=== PATIENT | male | born 1965 | race Caucasian/White ===

== ENCOUNTER 2020-09-20 19:43 | Inpatient (IN) | payer OTHER, SELFPAY ==
[2020-09-20 19:44] VITALS: BP 120/84; PULSE 98; RESP 18; TEMP 37.7; O2SAT 92; BMI 37.4
--- NOTE | 2020-09-20 19:49 | W.ED.ABDPA2 ---
HPI - Abdominal Pain General: Chief Complaint: Abdominal Pain Stated Complaint: SURGERY CONSULT Time Seen by Provider: 09/20/20 19:44 Source: patient and EMS Mode of arrival: EMS Limitations: no limitations History of Present Illness: HPI narrative: 54-year-old male that is here from [facility] for cholecystitis. CT scan showed possible cholecystitis. He states he has had abdominal pain along with fever and a cough since Monday. He denies any vomiting or diarrhea. He denies any worsening or improving factors. States temp at home today was 101. He is not requiring any oxygen Associated Symptoms: Reports fever(s); Denies dysuria Review of Systems Const: Reports: fever(s) and body aches Eyes: Denies: blurry vision or eye discomfort ENMT: Denies: throat pain or dental pain Card: Denies: chest pain Resp: Reports: non-productive cough GI: Reports: abdominal pain : Denies: dysuria Musc: Denies: neck pain or back pain Skin/Breast: Denies: rash Neuro: Denies: headache(s) Psych: Denies: depression Tim/Lymph: Denies: easy bruising All/Imm: Denies: urticaria PFSH ED PFSH: Medical History (Updated 09/20/20 @ 20:54 by Delvis Peters MD) Diabetes Hypertension Surgical History (Updated 09/20/20 @ 20:54 by Delvis Peters MD) No pertinent past surgical history Family History (Updated 09/20/20 @ 20:54 by Delvis Peters MD) Other No pertinent family history Social History Smoking and tobacco status: never smoked Alcohol intake: never Substance/Drug Use: never Housing: House Physical Exam Const: COMMON NORMALS: no acute distress, patient oriented x3 and healthy appearing HENMT: COMMON NORMALS: normocephalic and atraumatic HEAD & SCALP: normocephalic and atraumatic Eye: COMMON NORMALS: Equal, round and reactive pupils present and EOMs intact bilaterally PUPIL: Yes Equal, round and reactive pupils present Neck/C-Spine: COMMON NORMALS: full ROM and supple Chest: COMMONS NORMALS: normal inspection of the chest and normal palpation of entire chest wall Resp: COMMON NORMALS: normal respiratory effort, No retractions, No use of accessory muscles and clear to auscultation bilaterally AUSCULTATION: clear to auscultation bilaterally Cardio: COMMON NORMALS: regular rate, regular rhythm and No murmurs present (Cardio) RATE: regular rate RHYTHM: regular rhythm GI: COMMON NORMALS: Normal to inspection, nondistended, normoactive bowel sounds present, Soft to palpation and no masses PALPATION: Yes Soft to palpation and Yes Tenderness to palpation present (GI) Details: RUQ Extremity: COMMON NORMALS: normal to inspection and full ROM Neuro: COMMON NORMALS: patient oriented x3, moves all extremities and no focal motor deficits Psych: COMMON NORMALS: mental status grossly normal, Normal thought process present and cooperative THOUGHT PROCESS: Normal thought process present Skin: COMMON NORMALS: no rashes or lesions noted and no wounds GENERAL SKIN EXAM: no rashes or lesions noted Course Vital Signs: Vital signs: Vital Signs Temperature 99.9 F H 09/20/20 19:44 Pulse Rate 98 09/20/20 19:44 Respiratory Rate 18 09/20/20 19:44 Blood Pressure 120/84 09/20/20 19:44 Pulse Oximetry 92 09/20/20 19:44 MDM - Abdominal Pain MDM Narrative: Medical decision making narrative: Arie presents here with abdominal pain with cholecystitis. Patient also tested positive Covid. I spoke to Dr. Rendon and will admit for IV antibiotics. I spoke to hospitalist as well for his Covid. Patient is not requiring any oxygen here. Lab Data: Labs: Lab Results 09/20/20 Range/Units 19:58 SARS-CoV-2 Ag (Rap id) Positive H (Negative) Discharge Plan Discharge Patient Disposition: Admitted As Inpatient Clinical Impression: Cholecystitis, COVID-19 Condition: Stable Coding Level of Care Code ED Alignment Technician for Chg Fwd Exam Comprehensive
[2020-09-20 20:37] LABS: SARS Covid-2 Antigen Positive (Negative)
--- NOTE | 2020-09-20 20:52 | P.HP_ITS ---
Providers/Chief Complaint Chief Complaint: SURGERY CONSULT History of Present Illness Arie Richardson is a 54 year old male who does not have significant past medical history other than diabetes and hypertension presented today from [place] [facility] with chief complaint of myalgias, nausea and vomiting. Patient stating that his symptoms started on Monday with extreme myalgias, followed by nausea and couple of episode of emesis in total he had 3-4 episodes of bilious emesis, he was also noticing right upper quadrant pain, moderate intensity associated with loose stools. Temperature at home 101.3. Dr. Rendon is consulted and updated for acute cholecystitis that was diagnosed at [place], at the time of my evaluation patient seemed comfortable, he tested positive for COVID-19, was saturating 90 to 91% on room air, temperature 99.9. He meets sepsis criteria. Review of Systems Const: Reports: fever(s), chills, body aches and fatigue Eyes: Denies: change in vision ENMT: Denies: throat pain Card: Denies: chest pain Resp: Reports: dyspnea and non-productive cough GI: Reports: abdominal pain, nausea, vomiting and diarrhea : Denies: flank pain Musc: Denies: neck pain Skin/Breast: Denies: rash Neuro: Reports: headache(s) Psych: Denies: anxiety Endo: Denies: polyuria Itm/Lymph: Denies: easy bruising All/Imm: Denies: urticaria Medications/Allergies Allergies Allergy/AdvReac Type Severity Reaction Status Date / Time bee venom protein (honey bee) Allergy Unknown Verified 09/20/20 19:44 PFSH Acute PFSH: Medical History (Updated 09/20/20 @ 21:25 by Delvis Peters MD) Diabetes Hypertension Surgical History (Updated 09/20/20 @ 21:23 by Delvis Peters MD) H/O hand surgery Copperhead bite H/O knee surgery Previous back surgery Family History Other No pertinent family history Social History Smoking and tobacco status: never smoked Alcohol intake: never Substance/Drug Use: never Housing: House Vitals/I&O/Wt Last Vital Signs Temp 99.9 F H 09/20/20 19:44 Pulse 98 09/20/20 19:44 Resp 18 09/20/20 19:44 BP 120/84 09/20/20 19:44 Pulse Ox 92 09/20/20 19:44 Weight last 48 hrs Weight 111.584 kg Physical Exam Narrative: EXAM NARRATIVE: Morbidly obese male in semi-Sagastume position comfortable pleasant and cooperative during my evaluation Saturating 90 to 91% on room air no acute respiratory distress No use of respiratory sensory muscles No active chest pain Mild right upper quadrant abdominal pain elicited on deep palpation, abdomen soft, distended, visceral obesity, no signs of diffuse peritonitis, no guarding or rigidity Lower extremity no edema gangrene ulcer Appropriate mood and affect EOMI, PERRLA Awake alert oriented x3 GCS 15 No neurological deficit noted A&P Assessment and plan (1) Cholecystitis: Status: Acute (2) COVID-19: Status: Acute (3) Sepsis: Status: Acute Additional A&P Information Sepsis secondary to acute cholecystitis Criteria met with fever, heart rate above 90, source gallbladder inflammation Start on Zosyn, Dilaudid for analgesia, D5 half-normal saline fluid maintenance rate Dr. Rendon consulted and updated COVID-19 pneumonia Patient has been experiencing myalgias, diarrhea, febrile episode along nausea and vomiting nonproductive cough He is a non-smoker nonalcoholic Currently saturating well on room air Would not initiate Decadron or remdesivir at this point No signs of cytokine storm Monitor inflammatory markers Type 2 diabetes: I will keep him on low-dose sliding scale Hypertension: Currently normotensive Hold lisinopril/hydrochlorothiazide at this point Full code N.p.o., advance diet as tolerated DVTs SCDs avoid anticoagulation in case he would require any surgical intervention Attestations Medical Necessity Statement*: Anticipating stay in the hospital to cross more than 2 midnights continued inpatient admission for sepsis secondary to cholecystitis and COVID-19 pneumonia Time Spent in Patient Care: (>than 50% of time spent in counselling and/or direct pt care on unit) . 50MINS Coding Level of Care Code Acute Estimating Engineer for g Fwd Diagnoses Cholecystitis K81.9 COVID-19 U07.1 Sepsis A41.9
[2020-09-20 22:19] VITALS: BP 105/67; PULSE 85; O2SAT 91
--- NOTE | 2020-09-20 22:54 | PC.NURSE ---
Addendum entered by Eli Gan RN 09/20/20 22:55: POC glucose 119 Original Note: Report called to Amanda MCDONOUGH at 2226, a request for POC glucose check was made before pt was transferred to Med-surg.
[2020-09-20 22:55] LABS: Glucose Point of Care 119 mg/dL (70-110)
[2020-09-20 23:12] VITALS: BP 127/71; PULSE 97; RESP 17; O2SAT 91
[2020-09-20 23:15] VITALS: BP 135/87; PULSE 85; RESP 17; TEMP 36.4; O2SAT 97
[2020-09-21] MEDS: dextrose 5%-sod chloride 0.45% 1,000 ML 75 ML IV ×2 (00:10→13:58)
[2020-09-21] MEDS: piperacillin-tazobactam 3.375 GM in sodium chloride 0.9% (plus) 50 ML IV ×3 (00:10→15:55)
[2020-09-21 04:00] VITALS: BP 101/62; PULSE 72; RESP 17; TEMP 36.3; O2SAT 92
[2020-09-21 05:37] LABS: Basophils % 0.5 %; Eosinophils % 0.3 %; Hematocrit 43.8 % (42.0-52.0); Hemoglobin 14.5 g/dL (11.7-16.6); Lymphocytes # 1.6 10^3/uL (0.8-4.8); Lymphocytes % 39.5 %; Mean Corpuscular HGB Conc 33.1 g/dL (30.0-36.0); Mean Corpuscular Hemoglobin 28.3 pg (28.0-34.0); Mean Corpuscular Volume 85.5 fL (80-94); Mean Platelet Volume 11.1 fL (7.4-10.4); Monocytes # 0.3 10^3/uL (0.2-0.9); Monocytes % 7.6 %; Neutrophils # 2.03 10^3/uL (1.8-7.7); Neutrophils % 51.3 %; Nucleated Red Blood Cells % 0 %; Platelet Count 145 10^3/cmm (130-400); Red Blood Count 5.12 10^6/uL (4.1-5.3); Red Cell Distribution Width 12.3 % (12.1-15.1)
[2020-09-21 05:54] LABS: Procalcitonin 0.43 ng/mL (0-0.5)
[2020-09-21 06:05] LABS: Alanine Aminotransferase 333 U/L (0-41); Albumin Level 3.2 g/dL (3.5-5.2); Alkaline Phosphatase 260 IU/L (40-130); Anion Gap 15.1 (5-19); Aspartate Amino Transferase 257 U/L (0-40); Blood Urea Nitrogen 19 mg/dL (6-20); Calcium 8.6 mg/dL (8.5-10.5); Carbon Dioxide 25 mmol/L (22-29); Chloride 96 mmol/L (98-107); Glucose 105 mg/dL (65-115); Lactate Dehydrogenase 284 U/L (135-225); Osmolality Calculated 279 mOsm/kg (285-295); Potassium 3.1 mmol/L (3.5-5.1); Sodium 133 mmol/L (136-145); Total Bilirubin 2.1 mg/dL (0.15-1.2); Total Protein 6.2 g/dL (6.6-8.7)
[2020-09-21 06:38] LABS: Glucose Point of Care 105 mg/dL (70-110)
[2020-09-21] MEDS: potassium chloride ER 20 mEq Tablet 40 MEQ PO (07:11)
[2020-09-21 07:46] VITALS: BP 116/76; PULSE 70; RESP 18; TEMP 36.7; O2SAT 93
--- NOTE | 2020-09-21 07:48 | US_ITS ---
WS: [id number] ULTRASOUND ABDOMEN LIMITED CLINICAL INFORMATION: abd pain COMPARISON: None. FINDINGS: Technically limited examination due to body habitus. Liver Size: Enlarged Craniocaudal length: 20.5 cm. Echogenicity: Coarse fatty infiltration Surface nodularity: None. Mass (size and location): None. Bile ducts Intrahepatic ducts: Normal. Gallbladder Calculi and sludge filled gallbladder. Gallstones: Present Gallbladder sludge: Present Gallbladder wall thickenin mm Pericholecystic fluid: None. Pancreas Normal as visualized. Right kidney: Normal. Hydronephrosis: None. Size: 12.7 cm x 5.9 cm x 8.0 cm. Abdominal aorta and IVC Visualized portions are normal. Ascites: None. US/US gall bladder 95311 IMPRESSION: 1. Hepatomegaly with diffuse fatty infiltration. 2. Calculi and sludge filled gallbladder. Calculi in the neck of the gallbladder. Mild gallbladder wall thickening with gallbladder wall edema. Findings suspicious for cholecystitis. 3.No hydronephrosis in right kidney.
[2020-09-21 11:01] LABS: Glucose Point of Care 139 mg/dL (70-110)
[2020-09-21 11:18] VITALS: BP 117/71; PULSE 84; RESP 18; TEMP 36.8; O2SAT 93
--- NOTE | 2020-09-21 13:58 | PM.PN ---
Subjective Subjective: Interval history: He states he is overall doing all right. He is feeling somewhat hungry. Has intermittent dry cough. Abdominal pain persists. Says he had a mild headache previously, this has led up. Denies chest pain or pressure. Is not significantly short of breath. Vitals/I&O/Wt Last Vital Signs Temp 98.3 F 09/21/20 11:18 Pulse 84 09/21/20 11:18 Resp 18 09/21/20 11:18 BP 117/71 09/21/20 11:18 Pulse Ox 93 09/21/20 11:18 09/20/20 09/21/20 09/21/20 22:59 06:59 14:59 Intake Total 770 / 770 360 / 360 Balance 770 / 770 360 / 360 Weight last 48 hrs Weight 111.584 kg Physical Exam Const: COMMON NORMALS: no acute distress, patient oriented x3 and alert GENERAL APPEARANCE: cooperative NUTRITIONAL APPEARANCE: obese HENMT: COMMON NORMALS: oropharynx normal Neck/C-Spine: COMMON NORMALS: no JVD Resp: COMMON NORMALS: normal respiratory effort and clear to auscultation bilaterally AUSCULTATION: clear to auscultation bilaterally Cardio: COMMON NORMALS: no JVD, regular rhythm, S1 normal heart sound present, S2 normal heart sound present and No murmurs present (Cardio) RHYTHM: regular rhythm HEART SOUNDS: S1 normal heart sound present and S2 normal heart sound present GI: COMMON NORMALS: Normal to inspection, nondistended, normoactive bowel sounds present, Soft to palpation and non-tender PALPATION: Yes Soft to palpation and Yes Tenderness to palpation present (GI) (Tender across the upper abdomen, with positive Contreras sign, less on L) Extremity: COMMON NORMALS: no joint enlargement and no pedal edema Neuro: COMMON NORMALS: patient oriented x3 and moves all extremities SENSORIUM/ORIENTATION: Yes alert Skin: COMMON NORMALS: no rashes or lesions noted GENERAL SKIN EXAM: no rashes or lesions noted Data : 09/21/20 04:35 09/21/20 04:35 A&P Assessment and plan (1) Cholecystitis: At this time continue Zosyn, gentle IV hydration. Diet has been advanced somewhat. Continue as tolerating. We will obtain blood cultures. Status: Acute (2) COVID-19: Moderate COVID-19. He has been having some muscle ache, fatigue, but overall is doing all right currently. Has not been requiring any oxygen. At this time will monitor, provide supportive care. Monitor for any deterioration given risk factors for severe disease. Status: Acute (3) Sepsis: Possible. Obtain blood cultures. Status: Acute Additional A&P Information Type 2 diabetes: sliding scale insulin Hypertension: At goal. Hold lisinopril/hydrochlorothiazide at this point Hypokalemia: replaced. Recheck. Full code DVTs SC heparin Attestations Medical Necessity Statement*: Continue admission for assessment and management of acute cholecystitis, moderate covid 19 with risk factors for severe disease. Coding Level of Care Code Acute Community Service Officer Coordinator for [facility] Diagnoses Cholecystitis K81.9 COVID-19 U07.1 Sepsis A41.9
--- NOTE | 2020-09-21 14:10 | P.CONIM_ITS ---
Providers/Reason For Consult Consulting Physican/Specialty*: John Monroy Reason for Consult*: Gallstones Attending Physician: John Monroy History of Present Illness History of Present Illness Arie Richardson is a 54 year old male who was transferred from [facility] after he presented to the ER there with complaints of 2-day history of upper abdominal pain associated with 3-4 episodes of nausea and vomiting. At present patient is not nauseated. She states that he developed fevers, chills and generalized body aches 2 days prior. He was tested positive for COVID-19 on rapid testing in the ER. At present he states that he is hungry denies any nausea or vomiting and complains of generalized abdominal pain nonspecific to the right lower quadrant Review of Systems General: Reports: 10 or more systems reviewed and unremarkable except in HPI and below Meds/Allergies Home Medications and Allergies Home Medications Medication Instructions Recorded Confirmed Last Taken Type Trulicity See Rx Instructions .ROUTE .COMPLEX 09/21/20 09/21/20 Unknown History lisinopril-hydrochlorothiazide 1 tab PO DAILY 09/21/20 09/21/20 Unknown History metformin 750 mg PO BID 09/21/20 09/21/20 Unknown History Allergies Allergy/AdvReac Type Severity Reaction Status Date / Time bee venom protein (honey bee) Allergy Unknown Verified 09/20/20 19:44 Current Medications Current Medications Generic Name Dose Route Start Last Admin Trade Name Freq PRN Reason Stop Dose Admin Dextrose/Sodium Chloride 1,000 mls @ 75 mls/hr 09/20/20 23:39 09/21/20 13:58 Dextrose 5%-Sod Chloride 0.45% IV 75 mls/hr .[id number] RAJIV Administration Piperacillin Sod/Tazobactam 50 mls @ 12.5 mls/hr 09/21/20 08:30 09/21/20 09:24 Sod 3.375 gm/ Sodium Chloride IV 12.5 mls/hr Q8H RAJIV Administration Protocol Insulin Aspart 0 unit 09/21/20 08:00 09/21/20 11:10 Insulin Aspart 100 Unit/1 Ml SUBCUT Not Given WM&BEDTIME RAJIV Protocol PFSH Acute PFSH: Medical History Diabetes Hypertension Surgical History H/O hand surgery Copperhead bite H/O knee surgery Previous back surgery Family History Other No pertinent family history Social History Smoking and tobacco status: never smoked Alcohol intake: never Substance/Drug Use: never Housing: House Vitals/I&O/Wt Last Vital Signs Temp 98.3 F 09/21/20 11:18 Pulse 84 09/21/20 11:18 Resp 18 09/21/20 11:18 BP 117/71 09/21/20 11:18 Pulse Ox 93 09/21/20 11:18 09/20/20 09/21/20 09/21/20 22:59 06:59 14:59 Intake Total 770 / 770 1720 / 1720 Balance 770 / 770 1720 / 1720 Weight last 48 hrs Weight 246 lb Physical Exam Narrative: EXAM NARRATIVE: HEENT: Normocephalic Eye: Sclera /conjunctiva normal Abdomen: Soft to palpation, nontender, nondistended, no guarding or rigidity no significant right upper quadrant tenderness Neurological: Oriented to place person and time Skin: Intact, no lesions appreciated on gross exam A&P Assessment and plan (1) Cholelithiasis: 54-year-old gentleman who presents with fevers, chills, malaise, body aches, nausea and vomiting was noted to be COVID-19 positive as well as have cholelithiasis with suspicion for acute cholecystitis on ultrasound. At present patient is hemodynamically stable and not very significantly symptomatic. We would therefore like to hold off on any surgical intervention at this point and treat him empirically with IV antibiotics. Once he is discharged from the hospital he can follow-up in couple of weeks in clinic to further discuss cholecystectomy. Status: Acute Coding Level of Care Code Acute Accounting Instructor for megan Curry Diagnoses Cholelithiasis K80.20
[2020-09-21 15:34] VITALS: BP 113/68; PULSE 77; RESP 20; TEMP 37; O2SAT 94
[2020-09-21] MEDS: heparin 5,000 unit/mL INJ 1 mL 5000 UNIT SUBCUT ×2 (15:55→21:53)
[2020-09-21 16:48] LABS: Glucose Point of Care 154 mg/dL (70-110)
[2020-09-21 19:48] VITALS: BP 125/80; PULSE 80; RESP 18; TEMP 36.9; O2SAT 98
[2020-09-21 20:50] LABS: Glucose Point of Care 153 mg/dL (70-110)
[2020-09-22] VITALS: BP 102/68; PULSE 73; RESP 17; TEMP 37.1; O2SAT 92
[2020-09-22] MEDS: piperacillin-tazobactam 3.375 GM in sodium chloride 0.9% (plus) 50 ML IV ×2 (01:01→09:04)
[2020-09-22 04:00] VITALS: BP 106/70; PULSE 68; RESP 17; TEMP 36.9; O2SAT 91
--- NOTE | 2020-09-22 04:28 | PC.NURSE ---
patient states that he got up and went pee 3 times through the night
[2020-09-22 05:46] LABS: Basophils % 0.5 %; Eosinophils % 0.5 %; Hematocrit 43.4 % (42.0-52.0); Hemoglobin 14.6 g/dL (11.7-16.6); Lymphocytes # 1.5 10^3/uL (0.8-4.8); Lymphocytes % 38.5 %; Mean Corpuscular HGB Conc 33.6 g/dL (30.0-36.0); Mean Corpuscular Hemoglobin 28.5 pg (28.0-34.0); Mean Corpuscular Volume 84.8 fL (80-94); Mean Platelet Volume 10.6 fL (7.4-10.4); Monocytes # 0.4 10^3/uL (0.2-0.9); Monocytes % 9.6 %; Neutrophils # 1.94 10^3/uL (1.8-7.7); Neutrophils % 50.1 %; Nucleated Red Blood Cells % 0 %; Platelet Count 156 10^3/cmm (130-400); Red Blood Count 5.12 10^6/uL (4.1-5.3); Red Cell Distribution Width 12.2 % (12.1-15.1); White Blood Count 3.9 10^3/uL (4.0-10.0)
[2020-09-22] MEDS: dextrose 5%-sod chloride 0.45% 1,000 ML 75 ML IV (05:55)
[2020-09-22] MEDS: heparin 5,000 unit/mL INJ 1 mL 5000 UNIT SUBCUT (05:58)
[2020-09-22 06:06] LABS: Alanine Aminotransferase 257 U/L (0-41); Albumin Level 3.2 g/dL (3.5-5.2); Alkaline Phosphatase 262 IU/L (40-130); Anion Gap 14.7 (5-19); Aspartate Amino Transferase 152 U/L (0-40); Blood Urea Nitrogen 12 mg/dL (6-20); C Reactive Protein 40.6 mg/L (0.0-4.9); Calcium 8.5 mg/dL (8.5-10.5); Carbon Dioxide 24 mmol/L (22-29); Chloride 102 mmol/L (98-107); Globulin 2.9 g/dL (1.3-4.6); Glucose 122 mg/dL (65-115); Osmolality Calculated 285 mOsm/kg (285-295); Potassium 3.7 mmol/L (3.5-5.1); Sodium 137 mmol/L (136-145); Total Bilirubin 1.1 mg/dL (0.15-1.2); Total Protein 6.1 g/dL (6.6-8.7)
[2020-09-22 06:39] LABS: Glucose Point of Care 123 mg/dL (70-110)
[2020-09-22 07:55] VITALS: BP 116/68; PULSE 70; RESP 18; TEMP 36.8; O2SAT 92
[2020-09-22 10:33] LABS: Glucose Point of Care 191 mg/dL (70-110)
[2020-09-22 11:53] VITALS: BP 123/84; PULSE 65; RESP 18; TEMP 37.4; O2SAT 92
--- NOTE | 2020-09-22 13:58 | P.DS_ITS ---
Discharge Providers Date of Admission: 09/20/20 20:52 Date of Discharge: September 22, 2020 Attending Provider at Admission: Delvis Peters MD Attending Provider at Discharge: John Monroy Diagnoses at Discharge Discharge Diagnosis (1) Cholelithiasis: Status: Acute (2) COVID-19: Status: Acute (3) Sepsis: Status: Acute Reason for Visit Reason for Visit: SURGERY CONSULT Hospital Course Hospital Course Pleasant 54-year-old gentleman with history of diabetes, hypertension, was admitted after feeling unwell, with chills, myalgias, nausea and vomiting, with symptoms starting on Monday reportedly. At home febrile up to 101.3. Did have some loose stools. Diagnosed with acute cholecystitis at [facility] where he presented initially, and was transferred here for additional management. He also tested positive for COVID-19. His oxygen saturations remained stable and he did not require oxygen while in the hospital. He was treated with antibiotics with Zosyn while in the hospital. IV hydration . Initially bowel rest, with advancement of diet which he tolerated well. His abdominal pain has improved. He was seen by surgery and not found to require any urgent intervention. Given he is continue to improve, with improvement in his liver parameters, good oral intake, and doing much better subjectively he is cleared for discharge by surgery with follow-up in clinic to set up for elective cholecystectomy. We went over low-fat diet with him. With regards to coronavirus he continues to do well. We will do a home oxygen evaluation, although he has not required any oxygen so far. He has had minimal symptoms overall. Loose stools resolved. He is counseled to return to the hospital in case he is feeling any worse as sometimes symptoms may worsen at 10-14 days davina and he verbalized understanding. He is also instructed to continue isolation until at least 10 days after initial symptoms and at least 24 hours afebrile, without any other symptoms and with improving cough. Physical Exam Const: COMMON NORMALS: no acute distress and patient oriented x3 HENMT: COMMON NORMALS: oropharynx normal Neck/C-Spine: COMMON NORMALS: no JVD Resp: COMMON NORMALS: normal respiratory effort and clear to auscultation bilaterally AUSCULTATION: clear to auscultation bilaterally Cardio: COMMON NORMALS: no JVD, regular rhythm, S1 normal heart sound present, S2 normal heart sound present and No murmurs present (Cardio) RHYTHM: regular rhythm HEART SOUNDS: S1 normal heart sound present and S2 normal heart sound present GI: COMMON NORMALS: Normal to inspection, nondistended, normoactive bowel sounds present, Soft to palpation and non-tender PALPATION: Yes Soft to palpation Extremity: COMMON NORMALS: no joint enlargement and no pedal edema Neuro: COMMON NORMALS: patient oriented x3 and moves all extremities Skin: COMMON NORMALS: no rashes or lesions noted GENERAL SKIN EXAM: no rashes or lesions noted Discharge Data Data Completed and Pending: Completed Studies During Hospitalization Category Date Time Status US gall bladder 7 6705 Routine Ultrasound 09/21/20 07:48 Completed Pending at discharge Category Date Time Status Blood Culture Sta t Lab 09/21/20 18:00 Results Complete Blood Co unt w/Auto AM LABS Lab 09/23/20 04:00 Ordered Complete Blood Co unt w/Auto AM LABS Lab 09/24/20 04:00 Ordered Comprehensive Met abolic Panel AM LA BS Lab 09/23/20 04:00 Ordered Comprehensive Met abolic Panel AM LA BS Lab 09/24/20 04:00 Ordered Labs from last 24 hours 09/22/20 09/22/20 09/22/20 10:26 06:31 05:35 WBC RBC Hgb Hct MCV MCH MCHC RDW Plt Count MPV Neut % (Auto) Lymph % (Auto) Mills % (Auto) Eos % (Auto) Baso % (Auto) Neut # (Auto) Lymph # (Auto) Mills # (Auto) Eos # (Auto) Baso # (Auto) Nucleated RBC % (a uto) Nucleated RBCs # Sodium Potassium Chloride Carbon Dioxide Anion Gap BUN Creatinine GFR Calculation Glucose POC Glucose 191 123 Calculated Osmolal ity Calcium Total Bilirubin AST ALT Alkaline Phosphata se C-Reactive Protein 40.6 H Total Protein Albumin Globulin 09/22/20 09/22/20 09/21/20 05:35 05:35 20:22 WBC 3.9 L RBC 5.12 Hgb 14.6 Hct 43.4 MCV 84.8 MCH 28.5 MCHC 33.6 RDW 12.2 Plt Count 156 MPV 10.6 H Neut % (Auto) 50.1 Lymph % (Auto) 38.5 Mills % (Auto) 9.6 Eos % (Auto) 0.5 Baso % (Auto) 0.5 Neut # (Auto) 1.94 Lymph # (Auto) 1.5 Mills # (Auto) 0.4 Eos # (Auto) 0.0 Baso # (Auto) 0.0 Nucleated RBC % (a uto) 0 Nucleated RBCs # 0.0 Sodium 137 Potassium 3.7 Chloride 102 Carbon Dioxide 24 Anion Gap 14.7 BUN 12 Creatinine 0.8 GFR Calculation 100.0 Glucose 122 H POC Glucose 153 Calculated Osmolal ity 285 Calcium 8.5 Total Bilirubin 1.1 AST 152 H ALT 257 H Alkaline Phosphata se 262 H C-Reactive Protein Total Protein 6.1 L Albumin 3.2 L Globulin 2.9 09/21/20 16:41 WBC RBC Hgb Hct MCV MCH MCHC RDW Plt Count MPV Neut % (Auto) Lymph % (Auto) Mills % (Auto) Eos % (Auto) Baso % (Auto) Neut # (Auto) Lymph # (Auto) Mills # (Auto) Eos # (Auto) Baso # (Auto) Nucleated RBC % (a uto) Nucleated RBCs # Sodium Potassium Chloride Carbon Dioxide Anion Gap BUN Creatinine GFR Calculation Glucose POC Glucose 154 Calculated Osmolal ity Calcium Total Bilirubin AST ALT Alkaline Phosphata se C-Reactive Protein Total Protein Albumin Globulin Vitals: Last Vital Signs Temp 99.3 F 09/22/20 11:53 Pulse 65 09/22/20 11:53 Resp 18 09/22/20 11:53 BP 123/84 09/22/20 11:53 Pulse Ox 92 09/22/20 11:53 Discharge Plan Discharge Patient Disposition: Home Condition: Stable Prescriptions: New ciprofloxacin HCl 500 mg tablet 500 mg PO BID Qty: 14 RF: 0 metronidazole [Flagyl] 500 mg tablet 500 mg PO Q8H 7 Days Qty: 21 RF: 0 Continued metformin 500 mg tablet 750 mg PO BID RF: 0 Trulicity See Rx Instructions .ROUTE .COMPLEX RF: 0 Held lisinopril-hydrochlorothiazide 20-12.5 mg tablet 1 tab PO DAILY RF: 0 Hold Instructions: Resume on 09/26/20. Discharge Orders: Discharge Order (Routine); Ordered 09/22/20 Ordered By: John Monroy Referrals: Damien Rendon MD [Physician] - 10/13/20 1:45 pm Odalys,Arie, LEATHER SEASONER [Referring] - 09/29/20 2:30 pm Discharge Diet: Cardiac, Diabetic and Low Fat Discharge Activity: Increase activity as tolerated Patient Instructions: Ciprofloxacin (By mouth), Metronidazole (By mouth), Cholecystitis (GEN), Low Fat Diet (GEN) Activity Restrictions/Additional Instructions: Please maintain low-fat diet. Please complete antibiotic course. Please follow-up with Dr. Rendon in office for reassessment and to set up elective surgery for gallbladder removal. Please follow-up with your primary care doctor regarding acute cholecystitis. Please maintain isolation due to active coronavirus infection until at least 10 days after initiation of symptoms, and after you have been at least 24 hours without any fever, with resolution of any other symptoms like chills, muscle aches, headache, nausea, vomiting, diarrhea, etc., and with improving cough. At that time isolation can be discontinued. Please coordinate with your primary care doctor's office regarding this, or regarding any persistent symptoms. Please be aware that your symptoms may symptoms worsen with coronavirus around 10-14 days after initial infection. Please be vigilant and seek medical attention immediately in case you start getting more short of breath, notice your breathing very fast, or have any extreme fatigue, any other symptoms including blue discoloration of your fingers, lips, fainting, any severe chest pain, or any other concerning symptoms. Discharge Attestations Time Spent in Discharge Care*: greater than 30 min Quality Metrics Clinical Quality Measures During this hospital stay, did patient experience: None Coding Level of Care Code Acute Funeral Greeter for g Fwd Diagnoses Cholelithiasis K80.20 COVID-19 U07.1 Sepsis A41.9
[2020-09-22 14:00] VITALS: O2SAT 92; O2SAT 94
[2020-09-22 14:37] VITALS: BP 123/84; PULSE 65; RESP 18; TEMP 37.4; O2SAT 92
--- NOTE | 2020-09-22 16:19 | PC.NURSE ---
Discharge summary Patient discharged home via private vehicle and accompanied by family member. Patient's IV was removed from right AC and applied 2x2 and coban. Patient given two antibiotics filled from our pharmacy through our meds to beds program.
== END 2020-09-22 16:00 | disposition home or self-care (01) | DRG 871 ==
LOC: ER 20:59 → MEDSURG 21:40
PROVIDERS: Admitting Provider Internal Medicine; Emergency Provider Emergency Medicine; Visit Provider Internal Medicine
DX: A41.9 Sepsis, unspecified organism (principal); U07.1 COVID-19; J12.89 Other viral pneumonia; K80.20 Calculus of gallbladder without cholecystitis without obstruction; E11.9 Type 2 diabetes mellitus without complications; I10 Essential (primary) hypertension; Z79.84 Long term (current) use of oral hypoglycemic drugs
CPT/HCPCS: 12345; 36415; 36416; 76705; 80053; 82962; 83615; 84145; 85025; 86140; 87040; 87426; 96372; 99281; J1644; J1815; J2543; J7799

== ENCOUNTER 2022-07-13 08:41 | Outpatient (CLI) | payer OTHER, SELFPAY ==
[2022-07-13 10:39] LABS: Basophils # 0.1 10^3/uL (0.0-0.1); Basophils % 1.2 %; Eosinophils # 0.2 10^3/uL (0.0-0.8); Eosinophils % 2.3 %; Hematocrit 45.7 % (42.0-52.0); Hemoglobin 14.7 g/dL (11.7-16.6); Lymphocytes # 2.1 10^3/uL (0.8-4.8); Mean Corpuscular HGB Conc 32.2 g/dL (30.0-36.0); Mean Corpuscular Hemoglobin 26.8 pg (28.0-34.0); Mean Corpuscular Volume 83.2 fl (80-94); Mean Platelet Volume 10.1 fL (7.4-10.4); Monocytes # 0.7 10^3/uL (0.2-0.9); Monocytes % 9.1 %; Neutrophils # 4.67 10^3/uL (1.8-7.7); Neutrophils % 59.9 %; Nucleated Red Blood Cells % 0 %; Platelet Count 273 10^3/cmm (130-400); Red Blood Count 5.49 10^6/uL (4.1-5.3); Red Cell Distribution Width 13.6 % (12.1-15.1); White Blood Count 7.8 10^3/uL (4.0-10.0)
[2022-07-13 11:09] LABS: Estmated Average Glucose 174; Hemoglobin A1C 7.7 % (4.0-6.0)
[2022-07-13 11:13] LABS: Alanine Aminotransferase 22 U/L (0-41); Albumin Level 4.2 g/dL (3.5-5.2); Alkaline Phosphatase 91 U/L (40-130); Anion Gap 16.1 (5-19); Aspartate Amino Transferase 11 U/L (0-40); Blood Urea Nitrogen 22 mg/dL (6-20); Calcium 10.1 mg/dL (8.5-10.5); Carbon Dioxide 27 mmol/L (22-29); Chloride 96 mmol/L (98-107); Chol HDL Ratio 3.25 mg/dL (1.0-5.00); Cholesterol 143 mg/dL (0-200); Free T4 Free Thyroxine 1.27 ng/dL (0.82-1.77); Globulin 3.6 g/dL (1.3-4.6); Glomerular Filtration Rate 99.3 mL/min (90-130); Glucose 162 mg/dL (65-115); HDL Cholesterol 44 mg/dL (60-100); LDL Cholesterol Calculated 72 mg/dL (50-129); LDL HDL Ratio 1.64 RATIO (0.00-3.22); Osmolality Calculated 287 mOsm/kg (285-295); Potassium 4.1 mmol/L (3.5-5.1); Sodium 135 mmol/L (136-145); Thyroid Stimulating Hormone 1.89 uIU/mL (0.27-4.20); Total Bilirubin 0.3 mg/dL (0.15-1.2); Total Protein 7.8 g/dL (6.6-8.7); Triglycerides 133 mg/dL (0-150)
[2022-07-14 14:19] LABS: Lymes IGG WB <0.90 index
[2022-07-16 16:13] LABS: Rocky Mountain IgG NOT DETECTED; Rocky Mountain IgM NOT DETECTED
[2022-07-16 21:43] LABS: Bartonella Henselae IgG AB NEGATIVE; Bartonella Henselae IgM AB NEGATIVE; Bartonella Quintana IgG AB NEGATIVE
[2022-07-17 17:19] LABS: Francisella Tularensis DA <1:20 titer
[2022-07-28 15:25] LABS: Bartonella Quintana IgM AB NEGATIVE
[2022-07-28 15:26] LABS: Interpretation NOT DETECTED
== END 2022-07-13 08:42 | disposition home or self-care (01) ==
PROVIDERS: PCP Nurse Practitioner Family; Referring Provider Specialist; Visit Provider Nurse Practitioner Family
DX: I10 Essential (primary) hypertension (principal); E11.9 Type 2 diabetes mellitus without complications; E78.5 Hyperlipidemia, unspecified
CPT/HCPCS: 80053; 80061; 83036; 84439; 84443; 85025; 86000; 86611; 86617; 86666; 86757

== ENCOUNTER 2023-01-25 13:46 | Outpatient (CLI) | payer OTHER, SELFPAY ==
--- NOTE | 2023-01-25 13:58 | CT_ITS ---
WS: [id number] CT NECK WITH CONTRAST HISTORY: NONTOXIC MULTINODULAR GOITER/LOCALIZED Swelling, mass, LUMP TECHNIQUE: Contiguous 5 mm axial images are performed through the neck with intravenous contrast. Sag ittal and coronal reformats are also submitted. All CT scans at [facility] use at least one o f these dose optimization techniques: automated exposure control; mA and/or kV adjustment per patient size (includes targeted exams where dose is matched to clinical indication); or iterative reconstruc tion. CONTRAST: CONTRAST: Omnipaque 350; 100 mL IV. DLP: 321.66 mGy.cm COMPARISON: None available. Lobulated cystic appearing mass just deep to the LEFT strap muscle begins at the level of the hyoid b one and extends inferiorly 6 cm. Transverse diameter of 3.6 x 2.7 cm. This mass is causing mass effec t upon the thyroid and posterior displacement. Enhancing nodule measures 0.7 cm along the superior me dial aspect of this mass. There is a small subcentimeter nodule in the mid LEFT thyroid. Exophytic from the lower pole the LEFT thyroid is a lobulated soft tissue mass measuring 2.1 x 2.5 cm which is enhancing. Coarse calcificat ion in a 9 mm nodule in the mid RIGHT thyroid. Oropharynx and nasopharynx are negative. Vallecula and epiglottis are normal. No enlarged cervical ch ain lymph nodes. Normal appearance of the lung apices. Parotid glands and submandibular glands are no rmal. Visualized paranasal sinuses and mastoid air cells are normal. Lung apices are clear. Dental caries. CT/CT neck w con* [id number] IMPRESSION: 1. Lobulated cystic mass deep to the LEFT strap muscle and abutting the hyoid bone measures 3.6 x 2.7 x 6.0 cm in length. There does appear to be mass effect upon the thyroid with posterior displacement. 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 There is an enhancing mural nodule within the superior medial wall measuring 0.7 cm. Suggest surgical removal and excision to exclude neoplas m. 2. Solid mass with enhancement exophytic from the inferior pole of the LEFT th yroid suspicious for thyroid neoplasm. Recommend biopsy or surgical excision. T his may be difficult to biopsy due to its position. 3. No adenopathy.
[2023-01-25] MEDS: iohexol 350 mg/mL 500 mL Btl (per mL) IV (14:14)
== END 2023-01-25 13:47 | disposition home or self-care (01) ==
LOC: RAD 13:48
PROVIDERS: PCP Nurse Practitioner Family; Visit Provider Specialist
DX: E04.2 Nontoxic multinodular goiter (principal); R22.1 Localized swelling, mass and lump, neck
CPT/HCPCS: 70491; Q9967

== ENCOUNTER 2023-03-07 10:10 | Observation (INO) | payer OTHER, SELFPAY ==
[2023-03-03 10:24] VITALS: BMI 36.6
[2023-03-07 06:03] VITALS: BP 138/85; PULSE 72; RESP 18; TEMP 36.2; O2SAT 93
[2023-03-07 06:20] LABS: Glucose Point of Care 253 mg/dL (70-110)
--- NOTE | 2023-03-07 06:24 | ANES.PREANE2 ---
Pre-Anesthetic Assessment Height/Weight: Height 1.73 m Weight 109.316 kg Temp Pulse Resp BP Pulse Ox O2 Del Method 97.2 F L 72 18 138/85 93 Room Air 03/07/23 06:03 03/07/23 06:03 03/07/23 06:03 03/07/23 06:03 03/07/23 06:03 03/07/23 06:06 Operation Date: 03/07/23 07:00 Proposed Procedures p excisional bx left neck mass with possible istrunk procedure possible neck dissection E04.2,R22.1(Left) - Higinio Cruz MD s Eddie Procedure(Left) - Higinio Cruz MD s Neck Dissection(Left) - Higinio Cruz MD Familial anesthetic complications: None Was Beta Nguyễn taken within 24 hours: N/A Was Clonidine taken within 24 hours: N/A Last intake: Intake Last Liquid Date 03/06/23 Last Liquid Time 23:30 Last Solid Date 03/06/23 Last Solid Time 17:00 Social No alcohol and No tobacco Exam alert, oriented x 3, clear to auscultation bilaterally and regular rate & rhythm Airway Mallampati: Class II Dentition: other (no teeth) Comments: Comments: 01/29 neck CTLobulated cystic appearing mass just deep to the LEFT strap muscle begins at the level of the hyoid bone and extends inferiorly 6 cm. Transverse diameter of 3.6 x 2.7 cm. This mass is causing mass effect upon the thyroid and posterior displacement. Enhancing nodule measures 0.7 cm along the superior medial aspect of this mass. There is a small subcentimeter nodule in the mid LEFT thyroid. Exophytic from the lower pole the LEFT thyroid is a lobulated soft tissue mass measuring 2.1 x 2.5 cm which is enhancing. Coarse calcification in a 9 mm nodule in the mid RIGHT thyroid. Oropharynx and nasopharynx are negative. Vallecula and epiglottis are normal. No enlarged cervical chain lymph nodes. Normal appearance of the lung apices. Parotid glands and submandibular glands are normal. Visualized paranasal sinuses and mastoid air cells are normal. Lung apices are clear. Dental caries. CV/HEM Hypertension Metabolic Diabetes Mellitus Anesthetic Plan ASA status: 3 Anesthesia: General Risk of > 500 ml blood loss (7ml/kg in children): No Medications/Allergies Home Medications Medication Instructions Recorded Confirmed Last Taken Type Trulicity See Rx Instructions .Route .COMPLEX 09/21/20 03/03/23 03/03/23 History lisinopril 20 1 tab PO DAILY 09/21/20 03/03/23 03/06/23 History mg-hydrochlorothiazide 12.5 mg tablet metformin 500 mg tablet 750 mg PO BID 09/21/20 03/03/23 03/06/23 History insulin detemir U-100 100 unit/mL 12 unit SUBCUT DAILY 03/03/23 03/03/23 03/06/23 History (3 mL) subcutaneous pen (Levemir FlexPen) Allergies Allergy/AdvReac Type Severity Reaction Status Date / Time bee venom protein (honey bee) Allergy ALGY-Hives Verified 03/07/23 05:55 snake venom Allergy ALGY-Hives Uncoded 03/07/23 05:55 [facility] Anesthesia Medical History (Updated 10/15/20 @ 15:39 by Damien Rendon MD) Cholelithiasis COVID-19 Diabetes Hypertension Surgical History H/O hand surgery Copperhead bite H/O knee surgery Previous back surgery Family History Other No pertinent family history Social History Smoking and tobacco status: never smoked Alcohol intake: never Substance/Drug Use: never Housing: House Data Anesthesia Cardiac Studies: No Data to Display
[2023-03-07] MEDS: insulin regular-human 100 units/1 mL 10 UNIT IVP (06:40)
[2023-03-07] MEDS: sodium chloride 0.9% 1,000 ML 30 ML IV (06:41)
--- NOTE | 2023-03-07 06:53 | W.PM.OPSUD ---
Surgery/Procedure H&P Update DATE OF PROCEDURE: March 07, 2023 DATE H&P PERFORMED: 02/17/23 PRIMARY INDICATION FOR PROCEDURE: Left neck mass PLANNED PROCEDURE: Operation Date: 03/07/23 07:00 Proposed Procedures p excisional bx left neck mass with possible istrunk procedure possible neck dissection, Possible left hemithyroidectomy E04.2,R22.1(Left) - Higinio rCuz MD s Eddie Procedure(Left) - Higinio Cruz MD s Neck Dissection(Left) - Higinio Cruz MD
[2023-03-07] MEDS: ceFAZolin 2,000 MG in sodium chloride 0.9% (plus) 50 ML 100 MG IV ×3 (07:02→23:41)
[2023-03-07] MEDS: EPINEPHrine 1 mg/mL INJ 2 MG (08:20)
[2023-03-07] MEDS: fluorescein 1 mg Strip 3 MG (08:21)
[2023-03-07] MEDS: lidocaine-epi 1% 20 mL INJ 10 ML INJECTION (08:23)
[2023-03-07] MEDS: neomycin-poly-bacitracin oint 28 gm 28 APPLIC (08:24)
[2023-03-07] MEDS: ceFAZolin 1,000 mg SDV 1000 MG (08:28)
[2023-03-07] MEDS: thrombin 5,000 unit SDV 5000 UNIT XX (09:31)
[2023-03-07 09:39] LABS: Glucose Point of Care 266 mg/dL (70-110)
[2023-03-07 09:39] LABS: Glucose Point of Care 51 mg/dL (70-110)
[2023-03-07 09:39] LABS: Glucose Point of Care 200 mg/dL (70-110)
[2023-03-07 10:05] VITALS: BP 107/76; PULSE 76; O2SAT 99
--- NOTE | 2023-03-07 10:19 | P.OP_ITS ---
Operative Report Date of procedure: March 07, 2023 Pre-op diagnosis: Left anterior neck mass Post-op diagnosis: same Post-op diagnosis: - Left anterior neck mass: 3.5 X 5.5cm, primarily cystic with firm attachment to the left inferior border of the laryngeal cartilage - O/W normal anterior neck exam Post-op findings: Same as above Procedure done: Excisional biopsy of left neck mass Implants: None Specimens removed/disposition: 3.5X5.5cm left anterior neck mass Pathology: Left anterior neck mass Surgeon: Higinio Cruz Process Safety Manager: Satish Mixon Anesthesia: General Estimated blood loss (mL): 25 IV fluids (mL): 900 Complications: None Findings: - 3.5X5.5cm primarily cystic left anterior neck mass between the left thyroid lobe/left thyroid and cricoid cartilage and the strap muscles with firm attachment at the lower border of the left inferior thyroid cartilage - O/W normal anterior neck exam Condition: stable Disposition: ICU Brief History: 57 yo wm with a h/o a primarily cystic left neck mass who desires excisional biopsy. Procedure: The patient was identified in the preoperative holding area and was taken to the operating room where he was placed on the operating table in the supine position. Anesthesia was obtained with general endotracheal anesthesia and the table was then turned 180 degrees. The patient was intubated with the Nirvana nerve monitoring electrode in place on the endotracheal tube. An incision was marked out in a relaxed skin tension line overlying the left anterior neck mass. The incision was then injected with local anesthesia and the patient was then prepped and draped in the usual sterile fashion. The incision was then made with a 15 blade and was carried down through the subcutaneous tissues with electrocautery. Once the subplatysmal plane was reached a superior and inferior subplatysmal flap was raised. The mass was identified by palpation. At this point the strap muscles were dissected free from the overlying fat and were divided in the avascular midline. The mass was then slowly dissected free from the surrounding tissues until the attachment point was reached. There was a firm attachment of the mass at the lower border of the left thyroid cartilage - the mass was cut off at the attachment point with bipolar cautery. With the mass now out, the wound was inspected for hemostasis which was achieved with bipolar cautery. The specimen was sent for frozen section analysis which came back as equivocal. At this point the wound was treated with Kolby and thrombin-soaked Gelfoam was placed in the wound. The wound was closed with interrupted 4-0 Monocryl sutures and subcu and a running 5-0 Prolene on the skin. A drain was placed in the wound prior to closure. Once the wound was closed it was covered with triple antibiotic ointment and the procedure was terminated. Control of the patient was returned to anesthesia where he underwent an uneventful reversal of anesthesia and extubation and was taken to the intensive care unit in stable condition. There were no operative or anesthetic complications.
--- NOTE | 2023-03-07 10:20 | PC.NURSE ---
Pt to Unit Pt brought to the unit via bed by OR staff. Pt is on 5L via simple mask satting at 100% Bp is 140/88. Pt is awake. IV to left arm. Pt has incision to left side of the neck, sutured with antibiotic ointment and PATRICE drain in place.
--- NOTE | 2023-03-07 10:22 | SUR.OPER ---
1005 REPORT CALLED TO TYLER MCDONOUGH, ALL QUESTIONS ANSWERED. TYLER MCDONOUGH NO ADDITIONAL REPORT NEEDED AT BEDSIDE
[2023-03-07 10:26] LABS: Glucose Point of Care 185 mg/dL (70-110)
[2023-03-07 10:33] VITALS: BMI 36.6
[2023-03-07 11:32] VITALS: TEMP 36.1
--- NOTE | 2023-03-07 13:55 | ANE.PACU2 ---
Inpatient post-anesthesia follow up: Airway intact: Yes Vital signs: Temperature 97.0 F Pulse Rate 76 Respiratory Rate 18 Blood Pressure 107/76 Pulse Oximetry 99 Oxygen Delivery Me thod Room Air Oxygen Flow Rate 10 Fraction of Inspir ed Oxygen Hydration adequate: Yes Nausea and vomiting: Yes Pain level: 1 Mental status: Baseline
[2023-03-07] MEDS: famotidine 20 mg/2 mL INJ IVP ×2 (13:59→23:41)
[2023-03-07 19:00] VITALS: BP 129/87; PULSE 83; TEMP 37.2; O2SAT 93
[2023-03-07 20:00] VITALS: BP 100/74; PULSE 84; O2SAT 92
[2023-03-07 20:49] LABS: Glucose Point of Care 239 mg/dL (70-110)
[2023-03-07 21:00] VITALS: BP 144/80; PULSE 86; O2SAT 92
--- NOTE | 2023-03-07 21:49 | P.PN_ITS ---
Subjective Subjective: 57 yo wm who is night of surgery s/p excisional bx of left neck mass. The patient reports that he is doing well and has no c/o. Medications: Reviewed: Yes Vitals/I&O/Wt Last Vital Signs Temp 97.0 F L 03/07/23 11:32 Pulse 76 03/07/23 10:05 Resp 18 03/07/23 06:03 BP 107/76 03/07/23 10:05 Pulse Ox 99 03/07/23 10:05 O2 Del Method Room Air 03/07/23 10:33 O2 Flow Rate 10 03/07/23 10:05 03/07/23 03/07/23 03/07/23 06:59 14:59 22:59 Intake Total 250 / 250 50 / 300 Output Total 600 / 600 2235 / 2835 Balance -350 / -350 -2185 / -2535 Weight last 48 hrs Weight 109.316 kg Physical Exam Const: COMMON NORMALS: no acute distress, patient oriented x3, healthy appearing, alert and well nourished GENERAL APPEARANCE: cooperative HENMT: COMMON NORMALS: normocephalic, atraumatic and Normal external nose present HEAD & SCALP: normocephalic and atraumatic NOSE: Normal external nose present Eye: COMMON NORMALS: EOMs intact bilaterally and conjunctivae normal CONJUNCTIVA: Yes conjunctivae normal Neck/C-Spine: COMMON NORMALS: no lymphadenopathy and supple GENERAL: Yes trachea midline and Yes other (Neck wound intact without swelling. ) Lymph: LYMPHATIC: no lymphadenopathy noted Resp: COMMON NORMALS: normal respiratory effort, No retractions, No use of accessory muscles and clear to auscultation bilaterally AUSCULTATION: clear to auscultation bilaterally Cardio: COMMON NORMALS: regular rate and regular rhythm RATE: regular rate RHYTHM: regular rhythm Neuro: COMMON NORMALS: patient oriented x3 SENSORIUM/ORIENTATION: Yes alert Urinary Catheter Management: Boyce: Cath Placed During This Visit: yes Urinary Catheter Date of Insertion: 03/07/23 Urinary Catheter Time of Insertion: 07:20 A&P Assessment and plan (1) Mass in neck: Impression: Left neck mass doing well s/p excisional biopsy Plan: - Overnight observation - Closed suction drainage - Pain control - Regular diet - Resume preop meds - Insulin SS - Anticipate d/c in the am Attestations 2 Medical Necessity Statement*: The patient requires overnight observation of his airway Coding Level of Care Code Acute Code for Chg Fwd Diagnoses Mass in neck R22.1
[2023-03-08] VITALS: BP 129/73; PULSE 72; O2SAT 93
[2023-03-08 00:16] VITALS: PULSE 76
[2023-03-08] MEDS: metformin 500 mg Tablet 1000 MG PO (03:38)
[2023-03-08 03:44] LABS: Glucose Point of Care 173 mg/dL (70-110)
--- NOTE | 2023-03-08 05:03 | PM.PN ---
Subjective Subjective: 57 yo wm who is POD #1 s/p excisional bx of a left neck mass. The patient is doing well. He is taking po well and has no c/o. Medications: Reviewed: Yes Vitals/I&O/Wt Last Vital Signs Temp 98.9 F 03/07/23 19:00 Pulse 76 03/08/23 00:16 Resp 18 03/07/23 06:03 BP 129/73 03/08/23 00:00 Pulse Ox 93 03/08/23 00:00 O2 Del Method Room Air 03/08/23 00:00 O2 Flow Rate 10 03/07/23 10:05 03/07/23 03/07/23 03/08/23 14:59 22:59 06:59 Intake Total 250 / 250 50 / 300 50 / 350 Output Total 600 / 600 2235 / 2835 Balance -350 / -350 -2185 / -2535 50 / -2485 Weight last 48 hrs Weight 109.316 kg Physical Exam Const: COMMON NORMALS: no acute distress, patient oriented x3, alert and well nourished GENERAL APPEARANCE: cooperative HENMT: COMMON NORMALS: normocephalic, atraumatic and Normal external nose present HEAD & SCALP: normocephalic and atraumatic FACE & SINUS: normal facial exam NOSE: Normal external nose present Eye: COMMON NORMALS: EOMs intact bilaterally Neck/C-Spine: COMMON NORMALS: no lymphadenopathy and supple GENERAL: Yes trachea midline and Yes other (Left neck wound intact without erythema or swelling. ) Resp: COMMON NORMALS: normal respiratory effort, No retractions, No use of accessory muscles and clear to auscultation bilaterally AUSCULTATION: clear to auscultation bilaterally Cardio: COMMON NORMALS: regular rate, regular rhythm and No murmurs present (Cardio) RATE: regular rate RHYTHM: regular rhythm GI: COMMON NORMALS: Normal to inspection, nondistended, normoactive bowel sounds present Extremity: COMMON NORMALS: normal to inspection Neuro: COMMON NORMALS: patient oriented x3 SENSORIUM/ORIENTATION: Yes alert Urinary Catheter Management: Boyce: Cath Placed During This Visit: yes Urinary Catheter Date of Insertion: 03/07/23 Urinary Catheter Time of Insertion: 07:20 A&P Assessment and plan (1) Mass in neck: Impression: POD #1 s/p excisional bx of left neck mass doing well Plan: - Resume all preop medications - Sparks () tabs: take 1-2 tabs po Q5 hours prn pain, #25, NR - Apply KIKI to left neck wound TID - Continue closed suction drainage - Regular diet - F/U in Dr. Cruz's office in one week - Notify Dr. Cruz for any problems Attestations Medical Necessity Statement*: The patient required overnight observation of his airway Coding Level of Care Code Acute Code for Chg Fwd Diagnoses Mass in neck R22.1
[2023-03-08 08:17] VITALS: PULSE 76
[2023-03-17 11:14] LABS: BRAF V600E (BBPL) See Report
== END 2023-03-08 08:18 | disposition home or self-care (01) ==
LOC: ICU 17:31
PROVIDERS: Admitting Provider Specialist; PCP Nurse Practitioner Family; Visit Provider Specialist
PROC: (CPT 21550; principal; 2023-03-07 07:00)
DX: R22.1 Localized swelling, mass and lump, neck (principal)
CPT/HCPCS: 21550; 12345; 36416; 51702; 81210; 82962; 88309; 88331; 88342; G0378; J0171; J0330; J0690; J1100; J1815; J2405; J2704; J3010; J3490; J7030

== ENCOUNTER → 2024-02-14 09:53 | Outpatient (BNVA) | payer BC, MEDICAID, SELFPAY | PROVIDERS: PCP Nurse Practitioner Family; Referring Provider Nurse Practitioner Family; Visit Provider Internal Medicine | DX: C73 Malignant neoplasm of thyroid gland (principal); E03.9 Hypothyroidism, unspecified | CPT/HCPCS: 36415; 84432; 84439; 84443; 86800; 99204 ==